=== PATIENT | female | born 1990 | race Caucasian/White ===

== ENCOUNTER 2017-02-21 17:28 | Emergency (ER) | payer OTHER ==
[~2017-02-21] VITALS: Wt 70.0 kg
--- NOTE | 2017-02-21 18:07 | ERD ---
ER Documentation Chief Complaint Chief Complaint POSSIBLE ALLERGIC REACTION TO NEW MEDICATION HPI Otherwise healthy 26-year-old female presenting with a chief complaint of headache and general fatigue. Patient was evaluated yesterday diagnosed with vaginitis and given a prescription for metronidazole. Patient believes her symptoms are secondary to metronidazole. Is requesting work note. States that she took Tylenol with minimal relief yesterday. Has not taken any additional medications today to relieve symptoms. Has not taken this medication before. No aggravating or alleviating factors. Denies chest pain, body aches, meningismus, fever, chills, or abdominal pain. Patient has no other complaints and describes no other associated manifestations. Nursing notes have been reviewed and are consistent with history given. ROS All systems reviewed and are negative except as per history of present illness. Medications Home Meds Active Scripts Clindamycin Hcl* (Clindamycin Hcl*) 300 Mg Capsule, 300 MG PO BID for 7 Days, CAP Prov:AMAN HENDERSON PA-C 02/21/17 PMhx/Soc Medical and Surgical Hx: pt denies Medical Hx, pt denies Surgical Hx Hx Alcohol Use: No Hx Substance Use: No Physical Exam Vitals Vital Signs Date Time Temp Pulse Resp B/P Pulse Ox O2 Delivery O2 Flow Rate FiO2 02/21/17 17:32 98.1 71 18 149/71 98 Physical Exam Const: Healthy appearing 26-year-old female no acute distress Head: Atraumatic Eyes: Normal Conjunctiva. PERRLA, EOMI bilaterally. Ophthalmoscope exam unremarkable. ENT: Normal External Ears, Nose and Mouth. Neck: Full range of motion..~ No meningismus. No lymphadenopathy. Resp: Clear to auscultation bilaterally Cardio: Regular rate and rhythm, no murmurs. Cap refill less than 2 seconds. Radial pulses 2+ bilaterally. Abd: Soft, non tender, non distended. Normal bowel sounds. No suprapubic tenderness. Skin: No petechiae or rashes Back: No midline or flank tenderness. No CVA tenderness. Ext: No cyanosis, or edema Neur: Awake and alert. Neurovascularly intact. Psych: Normal Mood and Affect Procedures/MDM Patient presents with chief complaints of headache and general fatigue. Patient states that she was prescribed metronidazole and believes it is because that medication. Patient is wanting a different medication and a work note. Denies alcohol use or drug abuse. Patient will be given clindamycin with instructions for follow-up with PCP. I have no concern for anemia, serious bacterial infection including PID, systemic involvement, or serious drug reaction or endangerment of airway. I have spoke with the patient regarding their condition and future management. They have verbally responded that they understand their status and treatment plan. The patients vitals are stable, and their current condition is appropriate for discharge. The patient will be given discharge instructions with return precautions. Discharge medications: Clindamycin 300 mg p.o. Departure Diagnosis: Primary Impression: Adverse drug effect Encounter type: initial encounter Qualified Code: T88.7XXA - Adverse effect of drug, initial encounter Condition: Stable Additional Instructions: Follow up with your PCP within the next 1-3 days for a more thorough evaluation and a possible referral to a specialist. Return the the emergency department immediately if symptoms worsen or change. If you have any questions regarding medications, ask your pharmacist or us before you leave. If any adverse reactions occur while taking your medications, discontinue the treatment and return to the emergency department immediately. Take your medications as directed, and complete the entire course of treatment. AMAN HENDERSON PA-C Feb 21, 2017 18:07
[2017-02-21] MEDS ORDERED: CLIN-73 PO (18:08)
== END 2017-02-21 18:24 | disposition home or self-care (01) ==
LOC: FTE 17:28
DX: R51 Headache (principal)
CPT/HCPCS: 99283

== ENCOUNTER 2018-04-29 16:00 | Emergency (ER) | payer OTHER ==
[~2018-04-29] VITALS: Wt 71.0 kg
[~2018-04-29 16:00] MED LIST: CLIN300C10 PO
[2018-04-29] MEDS ORDERED: MECLIZINE 12.5 MG TAB PO ONE (18:30)
[2018-04-29] MEDS ORDERED: CEPH-443 PO (19:42)
[2018-04-29] MEDS ORDERED: MECL-77 PO (19:43)
--- NOTE | 2018-04-29 19:45 | ERD ---
ER Documentation Chief Complaint Chief Complaint DIZZINESS X 4 DAYS HPI 27-year-old female presents with dizziness for last 4 days. She describes it as a spinning type dizziness. She has mild nausea. She denies fevers, vomiting, s hortness breath or chest pain. She has has a mild bitemporal headache. She denies any history of trauma, additional symptoms. ROS All systems reviewed and are negative except as per history of present illness. Medications Home Meds Active Scripts Meclizine Hcl* (Meclizine Hcl*) 25 Mg Tablet, 25 MG PO Q8H PRN for DIZZINESS, #14 TAB Prov:VJ LEE MD 04/29/18 Cephalexin* (Keflex*) 500 Mg Capsule, 500 MG PO QID for 5 Days, CAP Prov:VJ LEE MD 04/29/18 Clindamycin Hcl* (Clindamycin Hcl*) 300 Mg Capsule, 300 MG PO BID for 7 Days, CAP Prov:AMAN HENDERSON PA-C 02/21/17 PMhx/Soc Hx Alcohol Use: No Hx Substance Use: No Hx Tobacco Use: No Smoking Status: Never smoker FmHx Family History: No diabetes, No coronary disease, No other Physical Exam Vitals Vital Signs Date Temp Pulse Resp B/P (MAP) Pulse Ox O2 O2 Flow FiO2 Time Delivery Rate 04/29/18 98.1 71 18 123/56 99 16:03 (78) Physical Exam Const: No acute distress Head: Atraumatic Eyes: Normal Conjunctiva ENT: Normal External Ears, Nose and Mouth. TMs and oropharynx normal. Neck: Full range of motion. No meningismus. Resp: Clear to auscultation bilaterally Cardio: Regular rate and rhythm, no murmurs Abd: Soft, non tender, non distended. Normal bowel sounds Skin: No petechiae or rashes Back: No midline or flank tenderness Ext: No cyanosis, or edema Neur: Awake and alert. No significant reproducible vertigo. No cerebellar signs are pronator drift. Normal gait. Psych: Normal Mood and Affect Result Diagram: 04/29/18182804/29/181828 Results 24 hrs Laboratory Tests Test 04/29/18 18:19 04/29/18 18:23 04/29/18 18:29 POC Beta HCG, Qualitative NEGATIVE Urine Color YELLOW Urine Clarity SLIGHTLY CLOUDY Urine pH 5.0 Urine Specific [place] 1.026 Urine Ketones TRACE mg/dL Urine Nitrite NEGATIVE mg/dL Urine Bilirubin NEGATIVE mg/dL Urine Urobilinogen NEGATIVE mg/dL Urine Leukocyte Esterase 1+ Juanita/ul Urine Microscopic RBC 0 /HPF Urine Microscopic WBC 2 /HPF Urine Squamous Epithelial Cells FEW /HPF Urine Mucus FEW /HPF Urine Hemoglobin NEGATIVE mg/dL Urine Glucose NEGATIVE mg/dL Urine Total Protein NEGATIVE mg/dl White Blood Count 8.6 10^3/ul Red Blood Count 4.70 10^6/ul Hemoglobin 13.8 g/dl Hematocrit 42.3 % Mean Corpuscular Volume 90.0 fl Mean Corpuscular Hemoglobin 29.4 pg Mean Corpuscular 32.6 g/dl Hemoglobin Concent Red Cell Distribution Width 11.9 % Platelet Count 269 10^3/UL Mean Platelet Volume 11.7 fl Immature Granulocytes % 0.300 % Neutrophils % 67.0 % Lymphocytes % 25.9 % Monocytes % 5.0 % Eosinophils % 1.5 % Basophils % 0.3 % Nucleated Red Blood Cells % 0.0 /100WBC Immature Granulocytes # 0.030 10^3/ul Neutrophils # 5.7 10^3/ul Lymphocytes # 2.2 10^3/ul Monocytes # 0.4 10^3/ul Eosinophils # 0.1 10^3/ul Basophils # 0.0 10^3/ul Nucleated Red Blood Cells # 0.0 10^3/ul Sodium Level 142 mmol/L Potassium Level 3.9 mmol/L Chloride Level 101 mmol/L Carbon Dioxide Level 27 mmol/L Anion Gap 14 Blood Urea Nitrogen 14 mg/dl Creatinine 0.61 mg/dl Est Glomerular Filtrat > 60 mL/min Rate mL/min Glucose Level 93 mg/dl Calcium Level 10.2 mg/dl Total Bilirubin 0.2 mg/dl Direct Bilirubin 0.00 mg/dl Indirect Bilirubin 0.2 mg/dl Aspartate Amino 31 IU/L Transf (AST/SGOT) Alanine 18 IU/L Aminotransferase (ALT/SGPT) Alkaline Phosphatase 76 IU/L Total Protein 8.9 g/dl Albumin 5.2 g/dl Globulin 3.70 g/dl Albumin/Globulin Ratio 1.40 Current Medications Medications Dose Sig/Estella Start Time Status Last (Trade) Ordered Route PRN Stop Time Admin Dose Reason Admin Meclizine 25 mg ONCE ONCE 04/29/18 DC 04/29/18 HCl PO 18:30 18:37 (Antivert) 04/29/18 18:31 Procedures/MDM CBC and CMP showed no acute significant acute abnormalities. Urine shows slight signs of urinary tract infection. HCG is negative. EKG: Rate/Rhythm: Normal Sinus Rhythm. Rate equals 62. QRS, ST, T-waves: No changes consistent w/ acute ischemia Impression: No evidence of ischemia or arrhythmia CT brain shows no acute abnormalities. Patient was given Keflex 500 mg by mouth. She presents with a vertigo type dizziness of uncertain etiology for last 4 days. She may have labyrinthitis. No evidence of MACHINE OILER lesions, signs of significant abnormalities except for very mild signs of UTI. She also has concentrated urine suggestive of mild dehydration. Will treat with instructions for fluids, Antivert, Keflex, primary care follow-up and return precautions. The patient was stable with no new complaints during the ER course. Clinically, there is no current evidence to suggest meningitis, sepsis, acute abdomen, pneumonia, stroke, acute coronary syndrome, pulmonary embolism, aortic dissection or any other emergent condition appearing to require further evaluation or hospitalization. Patient counseled regarding my diagnostic impression and care plan. Prior to discharge all questions answered. Pt agrees with treatment plan and understands strict return precautions. Pt is instructed to follow up with primary care provider within 24-48 hours. Precautionary ins tructions provided including instructions to return to the ER if not improving or for any worsening or changing symptoms or concerns. Departure Diagnosis: Primary Impression: Dizziness Condition: Stable Patient Instructions: Urinary Tract Infections in Women, Inner Ear Problems: Causes of Dizziness (Vertigo), Dizziness, Unk Cause Referrals: [facility] (PCP) Additional Instructions: All examinations normal today except for mild findings of urine infection and slight dehydration. May be labyrinthitis. Recommend fluids at home, rest. Recheck for new or worsening symptoms with primary care doctor. VJ LEE MD Apr 29, 2018 19:45
[2018-04-29 19:56] VITALS: BP 125/75; PULSE 65; RESP 20
[2018-04-29] MEDS ORDERED: CEPHALEXIN 500 MG CAP PO ONE (20:00)
== END 2018-04-29 19:59 | disposition home or self-care (01) ==
LOC: FTE 16:00
DX: R42 Dizziness and giddiness (principal)
CPT/HCPCS: 70450; 80053; 81001; 81025; 85025; Z7502; Z7610; 93005